=== PATIENT | female | born 1990 | race Caucasian/White ===

== ENCOUNTER 2019-11-05 20:46 | Outpatient (CLI) | payer SELFPAY ==
[2019-11-05 23:26] LABS: BILIRUBIN NEGATIVE (NEGATIVE); GLUCOSE NEGATIVE (NEGATIVE); KETONE NEGATIVE (NEGATIVE); NITRITE NEGATIVE (NEGATIVE); SPECIFIC GRAVITY 1.015 (1.005-1.020); UROBILINOGEN NORMAL (NORMAL)
[2019-11-05 23:27] LABS: AMORPHOUS SEDIMENT >1+ /lpf (NONE SEEN); BACTERIA FEW /hpf (NEGATIVE); EPITHELIAL CELLS 0-5 /hpf (0-5); RED CELLS - URINE NONE SEEN /hpf (0-5); WHITE CELLS - URINE 0-5 /hpf (NEGATIVE)
[2019-11-06 14:57] LABS: UDS - AMPHET NEGATIVE QUAL (NEGATIVE); UDS - BARB NEGATIVE QUAL (NEGATIVE); UDS - BENZO NEGATIVE QUAL (NEGATIVE); UDS - COCAINE NEGATIVE QUAL (NEGATIVE); UDS - OPIATE NEGATIVE QUAL (NEGATIVE); UDS - PCP NEGATIVE QUAL (NEGATIVE); UDS - THC POSITIVE QUAL (NEGATIVE)
== END 2019-11-06 00:36 | disposition home or self-care (01) ==
LOC: D.LDO 20:46 → D.LD 23:37 → D.LDO 11-06 00:36
PROVIDERS: ATTEND Student in an Organized Health Care Education/Training Program
DX: O36.8190 Decreased fetal movements, unspecified trimester, not applicable or unspecified (principal); Z3A.00 Weeks of gestation of pregnancy not specified; R10.30 Lower abdominal pain, unspecified

== ENCOUNTER 2019-12-28 19:45 | Outpatient (CLI) | payer SELFPAY ==
[2019-12-28 21:14] LABS: BILIRUBIN NEGATIVE (NEGATIVE); GLUCOSE NEGATIVE (NEGATIVE); KETONE NEGATIVE (NEGATIVE); NITRITE NEGATIVE (NEGATIVE); UROBILINOGEN NORMAL (NORMAL)
[2019-12-28 21:15] LABS: BACTERIA MODERATE /hpf (NEGATIVE); EPITHELIAL CELLS OCC /hpf (0-5); WHITE CELLS - URINE OCC /hpf (NEGATIVE)
[2019-12-28 21:37] LABS: UDS - AMPHET NEGATIVE QUAL (NEGATIVE); UDS - BARB NEGATIVE QUAL (NEGATIVE); UDS - BENZO NEGATIVE QUAL (NEGATIVE); UDS - COCAINE NEGATIVE QUAL (NEGATIVE); UDS - OPIATE NEGATIVE QUAL (NEGATIVE); UDS - PCP NEGATIVE QUAL (NEGATIVE); UDS - THC NEGATIVE QUAL (NEGATIVE)
== END 2019-12-28 20:51 | disposition home or self-care (01) ==
LOC: D.LDO 19:45
PROVIDERS: ATTEND Obstetrics & Gynecology
DX: O47.9 False labor, unspecified (principal)

== ENCOUNTER 2019-12-31 14:16 | Outpatient (CLI) | payer MEDICAID ==
[2019-12-31 15:35] LABS: BILIRUBIN NEGATIVE (NEGATIVE); KETONE NEGATIVE (NEGATIVE); NITRITE NEGATIVE (NEGATIVE); UROBILINOGEN NORMAL (NORMAL)
[2019-12-31 15:36] LABS: BACTERIA MODERATE /hpf (NEGATIVE); RED CELLS - URINE NONE SEEN /hpf (0-5)
== END 2019-12-31 17:08 | disposition home or self-care (01) ==
LOC: D.LDO 14:16
PROVIDERS: ATTEND Student in an Organized Health Care Education/Training Program
DX: O47.9 False labor, unspecified (principal); Z3A.00 Weeks of gestation of pregnancy not specified

== ENCOUNTER 2020-01-06 09:25 | Outpatient (CLI) | payer MEDICAID ==
[~2020-01-06] VITALS: Ht 154.9 cm; Wt 70.9 kg
[2020-01-06 13:01] VITALS: BP 111/71; Ht 154.9 cm; Wt 70.9 kg
[2020-01-06] MEDS ORDERED: PRENAVITE1 TAB PO (13:01)
[2020-01-06 13:53] LABS: BILIRUBIN NEGATIVE (NEGATIVE); KETONE NEGATIVE (NEGATIVE); NITRITE NEGATIVE (NEGATIVE); UROBILINOGEN NORMAL (NORMAL)
[2020-01-06 13:54] LABS: RED CELLS - URINE NONE SEEN /hpf (0-5)
[2020-01-06 13:55] LABS: BACTERIA FEW /hpf (NONE SEEN)
== END 2020-01-06 15:35 | disposition home or self-care (01) ==
LOC: D.LDO 09:25
PROVIDERS: ATTEND Obstetrics & Gynecology
DX: O47.1 False labor at or after 37 completed weeks of gestation (principal); Z3A.37 37 weeks gestation of pregnancy

== ENCOUNTER 2020-01-08 09:27 | Outpatient (CLI) | payer MEDICAID ==
[2020-01-06 13:01] VITALS: BMI 29.5
[~2020-01-08 09:27] MED LIST: PRENAVITE1 TAB PO
[2020-01-09 08:02] VITALS: BMI 29.5
== END 2020-01-08 09:54 | disposition home or self-care (01) ==
LOC: D.LDO 09:27
PROVIDERS: ATTEND Student in an Organized Health Care Education/Training Program
DX: O36.8130 Decreased fetal movements, third trimester, not applicable or unspecified (principal); Z3A.37 37 weeks gestation of pregnancy

== ENCOUNTER 2020-01-09 07:32 | Inpatient (IN) | payer MEDICAID ==
[~2020-01-09] VITALS: Ht 154.9 cm; Wt 70.8 kg
[2020-01-09 08:02] VITALS: BP 117/79; Ht 154.9 cm; Wt 70.8 kg
[2020-01-09 15:31] VITALS: BP 114/69
[2020-01-09 20:06] VITALS: BP 141/71
[2020-01-10 08:01] VITALS: BP 138/71
[2020-01-10 11:39] VITALS: BP 120/66
[2020-01-10] MEDS ORDERED: IBUPROFEN600 MG PO (11:47)
== END 2020-01-10 13:09 | disposition home or self-care (01) | DRG 807 ==
LOC: D.LDO 07:32 → D.LD 09:24
PROVIDERS: ADMIT Student in an Organized Health Care Education/Training Program; ATTEND Student in an Organized Health Care Education/Training Program
PROC: 10E0XZZ Delivery of Products of Conception, External Approach (ICD-10-PCS; principal; 2020-01-09)
DX: O62.3 Precipitate labor (principal); Z37.0 Single live birth; Z3A.38 38 weeks gestation of pregnancy; O71.82 Other specified trauma to perineum and vulva